=== PATIENT | male | born 1955 | race Hispanic/Latino ===

== ENCOUNTER 2017-01-06 09:17 | Emergency (ER) | payer OTHER, BC ==
[2017-01-06 09:20] VITALS: BMI 28.8
[2017-01-06 09:22] VITALS: BP 131/91; PULSE 109; RESP 19; TEMP 98.3; O2SAT 98
--- NOTE | 2017-01-06 09:47 | ED PDOC ---
HPI: Head Injury Time Seen by Provider: 01/06/17 09:35 Chief Complaint (Nursing): Trauma Chief Complaint (Provider): head injury History Per: Patient History/Exam Limitations: no limitations Injury Occurred (Timing): Hours Ago: (<1) Patient States: Struck With Object Severity: Moderate Loss Of Consciousness: No Front/Back Head: 1 - laceration Additional Complaint(s): 61yo male states was unloading a water heater from a truck when it fell striking him in the left side of head about 20min [employer]. No LOC, no dizziness, no nausea, no change vision, no neck pain. Denies other injuries besides head. Does not take blood thinning medication. PMD None Hx HTN but does not take medications Past Medical History Reviewed: Historical Data, Nursing Documentation, Vital Signs Vital Signs: Last Vital Signs Temp 98.3 F 01/06/17 09:19 Pulse 109 H 01/06/17 09:19 Resp 19 01/06/17 09:19 BP 131/91 H 01/06/17 09:19 Pulse Ox 98 01/06/17 09:19 - Medical History PMH: HTN (no meds) - Family History Family History: States: Unknown Family Hx - Social History Current smoker - smoking cessation education provided: No - Home Medications Home Medications: Ambulatory Orders Medication Instructions Recorded oxyCODONE/Acetaminophen [Percocet 1 tab PO Q6H PRN #15 tab 10/09/15 5/325 mg Tab] - Allergies Allergies/Adverse Reactions: Allergies Allergy/AdvReac Type Severity Reaction Status Date / Time No Known Allergies Allergy Verified 01/06/17 09:28 Review of Systems ROS Statement: Except As Marked, All Systems Reviewed And Found Negative Constitutional: Negative for: Fever, Chills Eyes: Negative for: Pain, Vision Change, Eyelid Inflammation ENT: Negative for: Nose Pain, Throat Pain, Throat Swelling Cardiovascular: Negative for: Chest Pain, Palpitations Respiratory: Negative for: Cough, Shortness of Breath Gastrointestinal: Negative for: Nausea, Vomiting Genitourinary Male: Negative for: Dysuria, Frequency Musculoskeletal: Negative for: Neck Pain, Shoulder Pain Skin: Negative for: Rash, Lesions, Jaundice Neurological: Negative for: Weakness, Numbness, Incoordination, Confusion, Seizures, Altered Mental Status, Headache, Dizziness Physical Exam - Reviewed Nursing Documentation Reviewed: Yes Vital Signs Reviewed: Yes - Physical Exam Appears: Positive for: Well, Non-toxic, No Acute Distress Head Exam: Positive for: NORMAL INSPECTION, NORMOCEPHALIC. Negative for: ATRAUMATIC (+ 4cm laceration L superior forhead at hairline, mild surrounding edema, tenderness and trace bleeding) Skin: Positive for: Normal Color, Warm, DRY Eye Exam: Positive for: EOMI, Normal appearance, PERRL ENT: Positive for: Normal ENT Inspection Neck: Positive for: Normal, Painless ROM Cardiovascular/Chest: Positive for: Regular Rate, Rhythm Respiratory: Positive for: CNT, Normal Breath Sounds Gastrointestinal/Abdominal: Positive for: Normal Exam, Bowel Sounds, Soft Back: Positive for: Normal Inspection Extremity: Positive for: Normal ROM Neurologic/Psych: Positive for: Alert, Oriented - ECG O2 Sat by Pulse Oximetry: 98 Medical Decision Making Medical Decision Making: CT brain, analgesic and laceration repair planned. Accession No. 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 HISTORY: head injury COMPARISON: None available. TECHNIQUE: Axial computed tomography images were obtained through the head/brain without intravenous contrast. Radiation dose: Total exam DLP = 876.49 mGy-cm. This CT exam was performed using one or more of the following dose reduction techniques: Automated exposure control, adjustment of the mA and/or kV according to patient size, and/or use of iterative reconstruction technique. FINDINGS: HEMORRHAGE: No intracranial hemorrhage. BRAIN: No mass effect or edema. Aefh-xs-zcvoopjn atrophy. Mild to moderate white matter changes suggestive but nonspecific for chronic microvascular ischemic disease. VENTRICLES: Unremarkable. No hydrocephalus. CALVARIUM: Unremarkable. PARANASAL SINUSES: Unremarkable as visualized. No significant inflammatory changes. MASTOID AIR CELLS: Unremarkable as visualized. No inflammatory changes. OTHER FINDINGS: None. IMPRESSION: No evidence of acute intracranial hemorrhage intracranial collection mass effect or midline shift. Stdh-um-kxpznygn atrophy and puvf-vs-xypkqmge presumed chronic microvascular ischemic disease Procedure note: laceration repair CT report reviewed and results d/w patient incld microvascular disease 5.0 cm complicated laceration to R superior forehead verbal consent obtained anesthestized w 5ml lidocaine 2% w epi Irrigated under pressure w 250ml sterile saline Required complex layered repair w/ 5-0 chromic to approximate subcutaneous tissue/muscle 2 sutures placed Then 4-0 nylon 4 interrupted sutures to approximate skin margins bacitracin applied and wound care explained. Nylon Sutures out 6-7 days. Pt remains AAOx3, given instructions for head injury also. Disposition - Clinical Impression Clinical Impression: Head injury, Forehead laceration - Patient ED Disposition Is Patient to be Admitted: No Counseled Patient/Family Regarding: Studies Performed, Diagnosis, Need For Followup, Rx Given - Disposition Referrals: Neal Castro MD [Staff Provider] - Disposition: Routine/Home Disposition Time: 10:40 (') Condition: STABLE Additional Instructions: Use bacitracin 3x daily for 5 days. Do not get area wet. Sutures need removed by your doctor, clinic, urgent care or return to ER if necessary in 5-6 days. Return to ER earlier for redness, swelling, pain, fever, discharge from wound or any concern. YOU WILL LIKELY HAVE A SCAR TO AREA, RECOMMEND GOOD WOUND CARE, SUN PROTECTION AND SKIN MOISTURIZER FOR 6 MONTHS TO HELP MINIMIZE SCAR. Instructions: Laceration (ED), Facial Laceration (ED), Head Injury (ED) Forms: Yub ([place])
--- NOTE | 2017-01-06 10:07 | CT ---
PROCEDURE: CT HEAD WITHOUT CONTRAST. HISTORY: head injury COMPARISON: None available. TECHNIQUE: Axial computed tomography images were obtained through the head/brain without intravenous contrast. Radiation dose: Total exam DLP = 876.49 mGy-cm. This CT exam was performed using one or more of the following dose reduction techniques: Automated exposure control, adjustment of the mA and/or kV according to patient size, and/or use of iterative reconstruction technique. FINDINGS: HEMORRHAGE: No intracranial hemorrhage. BRAIN: No mass effect or edema. Rbap-sl-ggpdncdm atrophy. Mild to moderate white matter changes suggestive but nonspecific for chronic microvascular ischemic disease. VENTRICLES: Unremarkable. No hydrocephalus. CALVARIUM: Unremarkable. PARANASAL SINUSES: Unremarkable as visualized. No significant inflammatory changes. MASTOID AIR CELLS: Unremarkable as visualized. No inflammatory changes. OTHER FINDINGS: None. IMPRESSION: No evidence of acute intracranial hemorrhage intracranial collection mass effect or midline shift. Rdwu-oj-qeoxxjxu atrophy and tquw-cf-btqnetsm presumed chronic microvascular ischemic disease.
[2017-01-06] MEDS ORDERED: Lidocaine 2% w Epi 1:100,000 Inj IJ ONE (10:15)
[2017-01-06] MEDS ORDERED: Lidocaine/Epi 1% 1:100000 20 ML IJ ONE (10:20)
== END 2017-01-06 10:59 | disposition home or self-care (01) ==
LOC: H.ER 09:17
DX: S01.81XA Laceration without foreign body of other part of head, initial encounter (principal); S09.90XA Unspecified injury of head, initial encounter; W22.8XXA Striking against or struck by other objects, initial encounter; Y93.9 Activity, unspecified